=== PATIENT | female | born 1995 | race American Indian/Alaskan Native ===

== ENCOUNTER 2017-12-04 00:15 | Emergency (ER) | payer SELFPAY ==
[2017-12-04 00:21] VITALS: BP 128/61
== END 2017-12-04 00:50 | disposition left against medical advice (07) ==
LOC: ED 00:15
DX: R00.0 Tachycardia, unspecified (principal); J02.9 Acute pharyngitis, unspecified; Z53.21 Procedure and treatment not carried out due to patient leaving prior to being seen by health care provider

== ENCOUNTER 2021-01-27 11:07 | Outpatient (CLI) | payer MEDICAID ==
[2021-01-27 11:58] LABS: Basophils # (Auto) 0.2 K/mm3 (0.0-0.1); Eosinophils # (Auto) 0.1 K/mm3 (0.0-0.4); Eosinophils % (Auto) 0.9 % (0.0-4.3); Hematocrit 41.9 % (30.3-42.9); Lymphocytes # (Auto) 1.3 K/mm3 (1.2-5.4); Lymphocytes % (Auto) 15.7 % (13.4-35.0); Mean Corpuscular HGB Conc 34 % (30-34); Mean Corpuscular Volume 84 fl (79-97); Monocytes # (Auto) 0.5 K/mm3 (0.0-0.8); Monocytes % (Auto) 5.4 % (0.0-7.3); Platelet Count 262 K/mm3 (140-440); Red Blood Count 4.97 M/mm3 (3.65-5.03); Red Cell Distribution Width 14.7 % (13.2-15.2)
[2021-01-27 12:16] LABS: % Iron Saturation 17.01 %; Alanine Aminotransferase 15 units/L (7-56); Albumin 4.3 g/dL (3.9-5); Blood Urea Nitrogen 10 mg/dL (7-17); Calcium 9.4 mg/dL (8.4-10.2); HDL Cholesterol 39 mg/dL (40-59); Hemolysis Index 3; Iron 49 ug/dL (37-170); LDL Cholesterol,Direct 81 mg/dL (50-130); Total Iron Binding Capacity 288 mcg/dL (250-450)
[2021-01-27 12:17] LABS: BUN/Creatinine Ratio 14
[2021-01-31 13:28] LABS: Vitamin D, 25-OH, D2 <4 ng/mL
== END 2021-01-27 11:08 | disposition home or self-care (01) ==
LOC: LAB 11:07
PROVIDERS: ATTEND Surgery
DX: Z13.1 Encounter for screening for diabetes mellitus (principal); E55.9 Vitamin D deficiency, unspecified; E66.01 Morbid (severe) obesity due to excess calories; K30 Functional dyspepsia
CPT/HCPCS: 36415; 80053; 80061; 82306; 82607; 82728; 83036; 83550; 84443; 85025

== ENCOUNTER 2021-07-29 08:50 | Outpatient (CLI) | payer MEDICAID ==
--- NOTE | 2021-07-29 10:56 | Fluoroscopy Report ---
BARIUM SWALLOW Indication: K30 FUNCTIONAL DYSPEPSIA. Technique: Single contrast barium technique utilized to evaluate the esophagus. FINDINGS: To begin the exam, swallowing was evaluated in the lateral position under direct fluorosco py. Swallowing was normal. No mucosal irregularity, mass, mass effect, or critical stenosis. There were no abnormal tertiary c ontractions as seen with dysmotility. No gastroesophageal reflux. IMPRESSION: Unremarkable exam. Fluoroscopic time: 1.0 minutes Number of fluoroscopic images: 16 Signer Name: Leroy Adhikari Jr, MD Signed: 07/29/2021 10:51 AM Workstation Name: [id number]
== END 2021-07-29 08:51 | disposition home or self-care (01) ==
LOC: FLUORO 08:50
PROVIDERS: ATTEND Surgery
DX: K30 Functional dyspepsia (principal)
CPT/HCPCS: 74220